=== PATIENT | female | born 1990 | race Caucasian/White ===

== ENCOUNTER 2020-10-24 16:28 | Inpatient (IN) ==
[2020-10-24] MEDS ORDERED: RINGER'S SOLUTION,LACTATED 1,000 ML IV ONE (17:29)
[2020-10-24] MEDS ORDERED: OXYTOCIN/0.9 % SODIUM CHLORIDE 30 UNITS/500 ML BAG IV ONE (17:29)
[2020-10-24] MEDS ORDERED: ONDANSETRON 4 MG TAB.RAPDIS PO PRN (17:29)
[2020-10-24] MEDS ORDERED: MISOPROSTOL 100 MCG TABLET VG PRN (17:29)
[2020-10-24] MEDS ORDERED: BUTORPHANOL TARTRATE 2 MG/ML VIAL IV PRN ×2 (17:29)
[2020-10-24] MEDS ORDERED: LIDOCAINE HCL 50 ML VIAL PERI PRN (17:29)
[2020-10-24 17:55] LABS: Hematocrit 36.6 % (37.0-47.0); Hemoglobin 12.4 gm/dL (12.5-16.0); Mean Cell Volume 92.7 fl (78-100); Mean Corpuscular Hemoglobin 31.4 pg (27-31); Mean Corpuscular Hgb Conc 33.9 g/dl (32-36); Neutrophil % 76.7 % (42-75.0); Platelet Count 187 K/mm3 (150-450); Red Blood Count 3.95 M/mm3 (4.2-5.4); Red Cell Distribution Width 13.3 % (11.5-14.0)
[2020-10-24] MEDS: RINGER'S SOLUTION,LACTATED 1,000 ML IV PRN (18:07)
[2020-10-24 18:18] LABS: Random Urine Total Protein 11.9 mg/dL (0-12)
[2020-10-24 18:41] LABS: Albumin * 2.6 gm/dl (3.4-5.0); Anion Gap 14.2 mmol/L (6.8-13.8); BUN/Creatinine Ratio 19.2 (9.0-21.6); Bilirubin, Total 0.3 mg/dL (0.0-1.1); Ca. Corrected For Albumin 10.1 mg/dL (8.4-10.2); Calcium * 9.3 mg/dL (7.9-10.9); Carbon Dioxide 21.3 mmol/L (24-32.6); Potassium 3.5 mmol/L (3.4-4.6); Total Protein 6.6 gm/dL (6.2-8.2)
[2020-10-24] MEDS ORDERED: RHO(D) IMMUNE GLOBULIN 1,500 UNIT SYRINGE IM ONE ×2 (18:59→20:11)
[2020-10-25] MEDS ORDERED: NALOXONE HCL 1 MG/1 ML SYRG IV PRN (00:49)
[2020-10-25] MEDS ORDERED: BUPIVACAINE HCL/0.9 % NACL/PF 250 ML EP PRN (00:49)
[2020-10-25] MEDS ORDERED: ONDANSETRON HCL/PF 2 MG/ML VIAL IV PRN (00:49)
[2020-10-25] MEDS ORDERED: fentaNYL CITRATE/PF 50 MCG/ML AMPUL IT SCH (01:00)
[2020-10-25] MEDS ORDERED: LIDOCAINE HCL/EPINEPHRINE 20 ML VIAL ONE (01:40)
[2020-10-25] MEDS: RINGER'S SOLUTION,LACTATED 1,000 ML IV PRN (02:45)
--- NOTE | 2020-10-25 02:46 | ANES ---
Post Anesthesia Assessment - Vital Signs Vitals: Last Vital Signs Temp 36.3 C 10/24/20 17:59 Pulse 93 10/24/20 17:59 Resp 18 10/24/20 17:59 BP 131/75 10/24/20 17:59 Pulse Ox 96 10/24/20 17:59 Airway Patency: Normal - Mental Status Level Of Consciousness: Awake - Pain Level Pain Score: 2 - N/V Assessment Nausea/Vomiting Presence: None Dehydration:: No
--- NOTE | 2020-10-25 02:46 | ANES ---
Anesthesia Pre Procedure Eval Vitals/Labs: Last Vital Signs Temp 36.3 C 10/24/20 17:59 Pulse 93 10/24/20 17:59 Resp 18 10/24/20 17:59 BP 131/75 10/24/20 17:59 Pulse Ox 96 10/24/20 17:59 HOME MEDICATIONS syringe with needle 3 mL 26 x 5/8" See Rx Instructions .ROUTE .MEDSUPPLY #100 ea 09/23/20 [Last Taken Unknown] heparin (porcine) 10,000 unit/mL injection solution 10,000 unit SUBCUT Q12H 10/14/20 [Last Taken 10/24/20 1030] Vits96/Iron Fum/Folic [ S] 1 tab PO DAILY 10/24/20 [Last Taken Unknown] Allergies/Adverse Reactions: Allergies Allergy/AdvReac Type Severity Reaction Status Date / Time No Known Drug Allergies AdvReac Verified 10/24/20 15:34 peanut AdvReac throat Verified 10/24/20 15:34 swelling salmon oil AdvReac throat Verified 10/24/20 15:34 swelling - Planned Procedure Planned Procedure: medical induction of labor Medication List Reviewed:: Yes Allergies Verified: Yes Medical History (Last Reviewed 10/25/20 @ 02:45 by Federico Pittman CRNA) DVT (deep venous thrombosis) Onset Date: ~2011 left leg Factor V Leiden Protein S deficiency Kidney stone Onset Date: ~2016 Spontaneous Onset Date: ~2016 Surgical History (Last Reviewed 10/25/20 @ 02:45 by Federico Pittman CRNA) History of lithotripsy Onset Date: ~2016 History of dilation and curettage Onset Date: ~2016 History of tonsillectomy and adenoidectomy Onset Date: ~1993 History of tympanoplasty Onset Date: ~1993 Hx of cholecystectomy Onset Date: ~2009 Family History (Last Reviewed 10/25/20 @ 02:45 by Federico Pittman CRNA) Mother Cancer, Onset Age: 45 stage IV colon cancer, at age 50 Protein S deficiency Father Unknown family medical history Sister Protein S deficiency - Family Anesthesia History Family History:: no untoward family reactions to anesthesia - Airway/Neck/Teeth Within Normal Limits:: Yes Teeth Condition: intact Neck Exam: full range of motion Mallampatti Score: 2 Thyromental (T-M) distance: > 6 cm Mandibulo Hyoid distance: > 3 cm - Respiratory Respiratory Physical: lungs clear Smoking Status: Never smoker Sleep Apnea currently treated: No Sleep Apnea by current assessment: No - Cardiovascular Tolerate Activity: Fair Heart Sounds: S1 & S2, Regular - Gastrointestinal NPO since: mn - Anesthesia Assessment and Plan ASA Class: PS, II, E Anesthesia Type Plan: Epidural Planned difficult intubation/equipment available: No
--- NOTE | 2020-10-25 02:46 | ANES ---
Post Anesthesia Discharge - Transfer of Care Transfer of Care handoff given to nurse: Yes - Anesthesia Post Op Note Anesthesia Post Op Note: Care transferred to OB RN
--- NOTE | 2020-10-25 02:48 | ANES ---
Anesthesia Procedure Note Procedure Note: ANESTHESIA PROCEDURE NOTE Date of Procedure: 10/25/2020 Time of procedure: 12 29. Performed by: Neeraj Pittman CRNA Radio Frequency Design Engineer: None. Preprocedure diagnosis: Active labor. Post procedure diagnosis: Same. Procedure: Insertion of labor epidural. Indications: The patient is a 29-year-old prima para female in active labor requesting labor epidural for pain management. Findings: See below. Details of the procedure: The patient was placed in a sitting position. Back was prepped with DuraPrep. Patient was then draped in a sterile fashion. Lidocaine 1% was infiltrated to the skin and subcutaneous tissues at the level of the L3 4 interspace. The epidural space was identified using a 18-gauge Tuohy needle with tybr-to-gpbfenqvko technique. 20 mcg fentanyl was given intrathecally using a 27 ga. spinal needle. Epidural catheter was inserted without difficulty. Negative test dose was elicited using 5 mL of 1.5% preservative-free lidocaine plus epinephrine 1 200,000. The epidural catheter was then taped and secured in place. EBL: Minimal. Fluids: N/A. Specimen: N/A. Post procedure condition: The patient tolerated the procedure well. No complications were noted. Thank you for this consultation. Valdivia CRNA
--- NOTE | 2020-10-25 09:02 | HP ---
Chief Complaint - Chief Complaint Date of Service: 10/24/20 Time of Service: 15:00 Chief Complaint: routine visit History of Present Illness: The patient is a 29 year old at 38w 3d now who presented to the office yesterday for a routine obstetrical visit and was found to have elevated blood pressure. She reported a headache but denied visual changes or abdominal pain. She denied ctx, vb or lof. Fetus active. Medical History (Last Reviewed 10/25/20 @ 09:00 by Chioma Carrillo MD) DVT (deep venous thrombosis) Onset Date: ~2011 left leg Factor V Leiden Protein S deficiency Kidney stone Onset Date: ~2016 Spontaneous Onset Date: ~2016 Surgical History: Surgical History (Last Reviewed 10/25/20 @ 09:00 by Chioma Carrillo MD) History of lithotripsy Onset Date: ~2016 History of dilation and curettage Onset Date: ~2016 History of tonsillectomy and adenoidectomy Onset Date: ~1993 History of tympanoplasty Onset Date: ~1993 Hx of cholecystectomy Onset Date: ~2009 Family History: Family History (Last Reviewed 10/25/20 @ 09:00 by Chioma Carrillo MD) Mother Cancer, Onset Age: 45 stage IV colon cancer, at age 50 Protein S deficiency Father Unknown family medical history Sister Protein S deficiency Social History: (Last Reviewed 10/25/20 @ 09:00 by Chioma Carrillo MD) Social History: adopted: No Marital status: Single lives independently: Yes household members: none current occupational status: student current occupation: accounting current occupational exposures/hazards: No Highest level of school completed/degree received: some college, no degree Service: No Tobacco: Smoking Status: Never smoker Alcohol: alcohol intake: never Substance Use: substance use type: does not use Dietary Habits: caffeine: Yes Review Of Systems (GEN) - Review of Systems Generalized/Overall Review: Present: No Symptoms Reported Misc: All systems neg except as marked Allergies/Adverse Reactions: Allergies Allergy/AdvReac Type Severity Reaction Status Date / Time No Known Drug Allergies AdvReac Verified 10/24/20 15:34 peanut AdvReac throat Verified 10/24/20 15:34 swelling salmon oil AdvReac throat Verified 10/24/20 15:34 swelling Home Medications: HOME MEDICATIONS syringe with needle 3 mL 26 x 5/8" See Rx Instructions .ROUTE .MEDSUPPLY #100 ea 09/23/20 [Last Taken Unknown] heparin (porcine) 10,000 unit/mL injection solution 10,000 unit SUBCUT Q12H 10/14/20 [Last Taken 10/24/20 1030] Vits96/Iron Fum/Folic [ S] 1 tab PO DAILY 10/24/20 [Last Taken Unknown] Exam - Exam Vital Signs: Vital Signs - Last Taken Temp 36.3 C 10/24/20 17:59 Pulse 93 10/24/20 17:59 Resp 18 10/24/20 17:59 BP 131/75 10/24/20 17:59 Pulse Ox 96 10/24/20 17:59 Constitutional: Present: Alert, Oriented x3, Cooperative, No distress ENT Exam: Present: hearing grossly normal Eye Exam: bilateral eye: normal inspection Neck: Present: normal inspection Back Exam: Present: normal inspection Breasts: Present: Exam deferred Respiratory: Present: lungs clear, normal breath sounds, no respiratory distress Cardiovascular/Chest: Present: regular rate, rhythm Abdomen: Present: soft, nontender, nondistended, no rebound tenderness /Rectal: Present: Exam deferred Extremity: Present: non-tender, no calf tenderness Skin Exam: Present: normal color, warm/dry, no cyanosis Neurologic: Present: alert, normal mood/affect, oriented x 3 Appearance: Present: appropriate appearance, appropriate insight, neat, no memory impairment Eye contact: Present: cooperative, good eye contact, normal speech Thoughts: Present: normal thought pattern Diagnostic Studies: Abnormal Lab Results 10/24/20 10/24/20 10/24/20 Range/Units 17:45 17:45 17:45 WBC 13.0 H (4.0-10.5) K/mm3 RBC 3.95 L (4.2-5.4) M/mm3 Hgb 12.4 L (12.5-16.0) gm/dL Hct 36.6 L (37.0-47.0) % MCH 31.4 H (27-31) pg Immature Gran % (Auto) 0.80 H (0.001-0.429) % Immature Gran # (Auto) 0.10 H (0.000-0.0310) K/mm3 Neutrophils % 76.7 H (42-75.0) % Lymphocytes % 15.6 L (20-51) % Neutrophils # 10.0 H (1.3-6.0) K/mm3 Carbon Dioxide 21.3 L (24-32.6) mmol/L Anion Gap 14.2 H (6.8-13.8) mmol/L Est GFR (Non-Af Amer) 149 H (60-130) mL/min Albumin 2.6 L (3.4-5.0) gm/dl Ur Random Creatinine 49.4 L (60-200) mg/dL U [place] Prot/Creat Ratio 241 H (0-199) mg/gm Laboratory Results WBC 13.0 K/mm3 (4.0-10.5) H 10/24/20 17:45 RBC 3.95 M/mm3 (4.2-5.4) L 10/24/20 17:45 Hgb 12.4 gm/dL (12.5-16.0) L 10/24/20 17:45 Hct 36.6 % (37.0-47.0) L 10/24/20 17:45 MCV 92.7 fl (78-100) 10/24/20 17:45 MCH 31.4 pg (27-31) H 10/24/20 17:45 MCHC 33.9 g/dl (32-36) 10/24/20 17:45 RDW 13.3 % (11.5-14.0) 10/24/20 17:45 Plt Count 187 K/mm3 (150-450) 10/24/20 17:45 MPV 10.0 fl (8-12.5) 10/24/20 17:45 Immature Gran % (Auto) 0.80 % (0.001-0.429) H 10/24/20 17:45 Immature Gran # (Auto) 0.10 K/mm3 (0.000-0.0310) H 10/24/20 17:45 Neutrophils % 76.7 % (42-75.0) H 10/24/20 17:45 Lymphocytes % 15.6 % (20-51) L 10/24/20 17:45 Monocytes % 6.5 % (0.0-9) 10/24/20 17:45 Eosinophils % 0.2 % (0.0-3.0) 10/24/20 17:45 Basophils % 0.2 % (0.0-1.0) 10/24/20 17:45 Nucleated RBC % 0.0 k/mm3 (0-1) 10/24/20 17:45 Neutrophils # 10.0 K/mm3 (1.3-6.0) H 10/24/20 17:45 Lymphocytes # 2.03 k/mm3 (1.5-3.5) 10/24/20 17:45 Monocytes # 0.9 k/mm3 (0.0-1.0) 10/24/20 17:45 Eosinophils # 0.0 k/mm3 (0.0-0.7) 10/24/20 17:45 Absolute Basophils 0.0 k/mm3 (0.0-0.1) 10/24/20 17:45 Sodium 135 mmol/L (132-142) 10/24/20 17:45 Plasma Sodium 135 mmol/L (130-142) 10/24/20 17:45 Potassium 3.5 mmol/L (3.4-4.6) 10/24/20 17:45 Chloride 103 mmol/L (97-106) 10/24/20 17:45 Carbon Dioxide 21.3 mmol/L (24-32.6) L 10/24/20 17:45 Anion Gap 14.2 mmol/L (6.8-13.8) H 10/24/20 17:45 BUN 10 mg/dL (3-23) 10/24/20 17:45 Creatinine 0.52 mg/dL (0.4-1.4) 10/24/20 17:45 Est GFR (Non-Af Amer) 149 mL/min (60-130) H 10/24/20 17:45 BUN/Creatinine Ratio 19.2 (9.0-21.6) 10/24/20 17:45 Random Glucose 81 mg/dL (70-110) 10/24/20 17:45 Calcium 9.3 mg/dL (7.9-10.9) 10/24/20 17:45 Calcium Adj for Albumin 10.1 mg/dL (8.4-10.2) 10/24/20 17:45 Total Bilirubin 0.3 mg/dL (0.0-1.1) 10/24/20 17:45 AST 16 U/L (0-48) 10/24/20 17:45 ALT 22 U/L (19-67) 10/24/20 17:45 Alkaline Phosphatase 157 U/L (50-170) 10/24/20 17:45 Total Protein 6.6 gm/dL (6.2-8.2) 10/24/20 17:45 Albumin 2.6 gm/dl (3.4-5.0) L 10/24/20 17:45 Ur Random Creatinine 49.4 mg/dL (60-200) L 10/24/20 17:45 U Random Total Protein 11.9 mg/dL (0-12) 10/24/20 17:45 U [place] Prot/Creat Ratio 241 mg/gm (0-199) H 10/24/20 17:45 Blood Type A Negative 10/24/20 17:45 Antibody Screen Negative 10/24/20 17:45 Assessment/Plan - Narrative Narrative: 29 year old at 38w 3d 1. Medical IOL due to GHTN: Received cytotec and augmented with pitocin. SROM. 2. GBS negative: prophylaxis not indicated
--- NOTE | 2020-10-25 09:06 | OR ---
Operative Report - Dictated Report Narrative: Date of delivery: 10/25/2020 Time of delivery: 817 Gender: female weight: 3149 grams APGARS: 8/8 Procedure: Description of the procedure: The patient is a 29 year old at 38w 3d who was induced due to GHTN. She progressed to complete dilation. She delivered a viable female in KRISTIN presentation. The shoulders delivered without any difficulty followed by the rest of the . Cord clamping was delayed for 60 seconds due to vigorous . The cord was clamped and cut. Cord blood was collected. The placenta was delivered by expression, intact and delivered without any difficulty. A supraurethral laceration was noted which was bleeding briskly. Pressure was held. 1% lidocaine with epinephrine was injected for anesthesia. This laceration was repaired with 4-0 vicryl rapide. A second degree perineal/vaginal laceration was repaired with 2-0 vicryl. Hemostasis was adequate. Two packs of laps were used. EBL: 300 mL Complications: none Specimens: cord blood History for Definition: * The number of deliveries resulting in a live the patient experienced prior to current hospitalization * The previous delivery of live twins or any live multiple gestation is considered one live event. *If primagravida or nulliparous is documented select zero for the number of previous live births. Live Events: 0
--- NOTE | 2020-10-25 09:15 | PN ---
Progess Note - Interim Date: 10/25/20 Time: 09:14 Narrative: 10/25/20 09:14 RN reported that the patient felt lightheaded and dizzy Fluid bolus started STAT CBC ordered
[2020-10-25] MEDS ORDERED: MISOPROSTOL 200 MCG TABLET PO ONE (09:19)
[2020-10-25 09:45] LABS: Hematocrit 30.7 % (37.0-47.0); Hemoglobin 10.3 gm/dL (12.5-16.0); Mean Cell Volume 94.2 fl (78-100); Mean Corpuscular Hemoglobin 31.6 pg (27-31); Mean Corpuscular Hgb Conc 33.6 g/dl (32-36); Mean Platelet Volume 9.8 fl (8-12.5); Platelet Count 167 K/mm3 (150-450); Red Blood Count 3.26 M/mm3 (4.2-5.4); Red Cell Distribution Width 13.2 % (11.5-14.0)
[2020-10-25 09:50] LABS: Total Cells Counted 100
[2020-10-25 10:14] LABS: Atypical (Reactive) Lymph 1 % (0-2); Band 6 % (0-2.0); Lymphocyte 5 % (20-51); Monocyte 8 % (0-9); Neutrophil 80 % (42-75); Neutrophil # 14.4 K/mm3 (1.3-6.0)
[2020-10-25 10:15] LABS: Platelet Estimate Normal (NORMAL); RBC Morphology Normal (NORMAL)
[2020-10-25] MEDS ORDERED: GLYCERIN/WITCH HAZEL LEAF 40 APPL BOX TP PRN (12:40)
[2020-10-25] MEDS ORDERED: BENZOCAINE/MENTHOL 81 SPRAY CAN TP PRN (12:40)
[2020-10-25] MEDS ORDERED: HYDROcodone/ACETAMINOPHEN 1 EACH TABLET PO PRN (14:09)
[2020-10-25] MEDS: IBUPROFEN 800 MG TABLET PO PRN (14:25)
[2020-10-25] MEDS: AMPICILLIN SODIUM 2,000 MG in NORMAL SALINE 100 ML IV SCH ×2 (17:09→23:13)
[2020-10-25] MEDS: CLINDAMYCIN IN 0.9 % SOD CHLOR 900 MG/50 ML BAG IV SCH (17:46)
[2020-10-25] MEDS: GENTAMICIN SULFATE IV SCH ×2 (18:47)
[2020-10-25] MEDS: DEXTROSE 5% IV SCH ×2 (18:47)
[2020-10-25] MEDS: WATER IV SCH ×2 (18:47)
[2020-10-25] MEDS: ENOXAPARIN SODIUM 60 MG/0.6 ML SYRG SC SCH (21:11)
[2020-10-26] MEDS: CLINDAMYCIN IN 0.9 % SOD CHLOR 900 MG/50 ML BAG IV SCH ×2 (01:57→09:48)
[2020-10-26] MEDS: AMPICILLIN SODIUM 2,000 MG in NORMAL SALINE 100 ML IV SCH ×2 (04:13→10:46)
[2020-10-26] MEDS: WATER IV SCH ×2 (04:47)
[2020-10-26] MEDS: GENTAMICIN SULFATE IV SCH ×2 (04:47)
[2020-10-26] MEDS: DEXTROSE 5% IV SCH ×2 (04:47)
[2020-10-26] MEDS: IBUPROFEN 800 MG TABLET PO PRN ×2 (05:08→15:26)
[2020-10-26] MEDS: PRENATAL VITS96/IRON FUM/FOLIC 1 TAB TABLET PO SCH (08:30)
[2020-10-26] MEDS: ENOXAPARIN SODIUM 60 MG/0.6 ML SYRG SC SCH ×2 (08:35→21:08)
--- NOTE | 2020-10-26 09:34 | PN ---
Subjective - Date and Time Seen Date: 10/26/20 Time: 09:30 Objective - Vitals Vitals: Last Vital Signs Temp 36.2 C 10/26/20 06:50 Pulse 82 10/26/20 06:50 Resp 16 10/26/20 06:50 BP 130/71 10/26/20 06:50 Pulse Ox 99 10/26/20 06:50 Patient denies complaints. Patient had episode yesterday afternoon feeling a little warm but denied any specific pain or symptoms. Her temperature was 37.9. Since then she has not had any recurrent episodes and states she feels fine. Lochia wnl abdomen - soft, nontender Uterus -firm, at umbilicus - 1, nontender No calf tenderness, trace pedal edema Impression: day #1 - s/p spontaneous vaginal delivery. Gestational hypertension-resolved. Borderline elevated temperature x1-placed on triple antibiotics by her physician to treat suspected chorioamnionitis/amnionitis. Plan: Continue routine care. Since patient is doing very well, will not continue antibiotics after she finishes her 24-hour course of antibiotics. - Abnormal Lab Findings Abnormal Lab Findings: Abnormal Lab Results 10/25/20 Range/Units 09:40 WBC 18.0 H D (4.0-10.5) K/mm3 RBC 3.26 L (4.2-5.4) M/mm3 Hgb 10.3 L (12.5-16.0) gm/dL Hct 30.7 L (37.0-47.0) % MCH 31.6 H (27-31) pg Neutrophils % (Manual) 80 H (42-75) % Band Neuts % (Manual) 6 H (0-2.0) % Lymphocytes % (Manual) 5 L (20-51) % Neutrophils # (Manual) 14.4 H (1.3-6.0) K/mm3 Lymphocytes # (Manual) 0.9 L (1.5-3.5) k/mm3 Monocytes # (Manual) 1.4 H (0.0-1.0) k/mm3
[2020-10-26] MEDS ORDERED: DEXTROSE 5% IV SCH ×2 (13:00)
[2020-10-26] MEDS ORDERED: WATER IV SCH ×2 (13:00)
[2020-10-26] MEDS ORDERED: GENTAMICIN SULFATE IV SCH ×2 (13:00)
[2020-10-27] MEDS: IBUPROFEN 800 MG TABLET PO PRN (02:16)
--- NOTE | 2020-10-27 08:02 | PN ---
Subjective - Date and Time Seen Date: 10/27/20 Time: 08:00 Subjective Narrative: Patient without complaints Objective Objective Narrative: See vital signs - Review of Systems Generalized/Overall Review: Reports: No Symptoms Reported Misc: All systems neg except as marked - Vitals Vitals: Last Vital Signs Temp 36.8 C 10/26/20 23:38 Pulse 93 10/26/20 23:38 Resp 18 10/26/20 23:38 BP 120/66 10/26/20 23:38 Pulse Ox 96 10/26/20 23:38 - Exam Constitutional: Present: Alert, Oriented x3, Cooperative, No distress ENT Exam: Present: hearing grossly normal Neck: Present: normal inspection Abdomen: Present: soft, nontender, nondistended Extremity: Present: non-tender, no calf tenderness Skin Exam: Present: normal color, warm/dry, no cyanosis Neurologic: Present: alert, normal mood/affect, oriented x 3 Appearance: Present: appropriate appearance, appropriate insight, neat, no [place] impairment Eye contact: Present: cooperative, good eye contact, normal speech Thoughts: Present: normal thought pattern Assessment/Plan Plan Narrative: PPD 2 s/p Doing well Discharge today
--- NOTE | 2020-10-27 08:03 | DS ---
OB Discharge Summary Delivery Date: 10/25/20 Delivery Time: 08:18 :: 2 Para:: 1 Gestational weeks:: 38 Gestational days:: 3 Intrapartum Procedures: Spontaneous Vaginal Delivery, Anesthesia - Epidural Procedures: Antibiotics1 /OP Complications: Perineal Laceration, Other - supra-urethral laceration Discharge Diagnosis: Term -Delivered, Gestational Hypertension, Other - history of DVT on lovenox - Discharge Information Discharge Location: Home Disposition: Home self-care Referrals: Faustino Elizabeth, [Primary Care Provider] - Activity on Discharge:: Activity as tolerated, Pelvic Rest Discharge Diet: General/regular food Additional Patient Instructions (free text): Junie, your follow up appointment is Your appointment with Dr. Elizabeth is Yrn follow up appointment is tomorrow at Nurse [facility] every 2 to 3 hours and on demand. Watch for hunger cues. Rest when she rest. Always lay her on her back to sleep, in her own sleeping area. No extra pillows, blankets or stuffed animals. No Co sleeping. Blood Type - A + Weight - 6 lb 15 oz Todays weight - 6 lb 1. 6 oz Bilirubin level today is - She has passed her hearing screen and CHD screen. Please don't hesitate to call with any questions or concerns. [facility] - [phone], [facility] - [phone]. Prescriptions (Any new or edited meds): Enoxaparin Sodium [Lovenox] 120 mg SC Q12H #88 disp.syrin Transmission Status: Received by [facility] Complete Home Medications List: Complete Home Medication List: Vits96/Iron Fum/Folic [ S] 1 tab PO DAILY 10/24/20 Enoxaparin Sodium [Lovenox] 120 mg SC Q12H #88 disp.syrin 10/25/20 - Plan Discharge to:: Home Comment:: Routine Discharge Instructions Follow up in office in:: 6 weeks - Information Weight (Grams): 3,149 Infant Sex: Female Score 1 min: 8 Score 5 min: 8 Infant Complications: None Other Complications: mild respiratory distress with CPAP and blow by O2
[2020-10-27 08:08] VITALS: BP 130/75
[2020-10-27] MEDS: ENOXAPARIN SODIUM 60 MG/0.6 ML SYRG SC SCH (09:53)
[2020-10-27] MEDS: PRENATAL VITS96/IRON FUM/FOLIC 1 TAB TABLET PO SCH (10:05)
== END 2020-10-27 13:00 | disposition home or self-care (01) | DRG 807 ==
LOC: OB 16:47
PROVIDERS: ADMIT Obstetrics & Gynecology; ATTEND Obstetrics & Gynecology